=== PATIENT | female | born 1980 | race Caucasian/White ===

== ENCOUNTER 2017-03-13 16:17 | Emergency (ER) | payer BC ==
--- NOTE | 2017-03-13 18:00 | ED Physician Documentation ---
Fall - HISTORIAN Historian: patient - HPI Stated Complaint: Right Ankle Injury Chief Complaint: Fall Additional Information: stepped rt foot pothole w sig pain area distal fibula Onset: today (1500hrs) Where: park Context: lost balance r: moderate Associated Symptoms:: no loss of consciousness Location of Pain/Injury: denies: head, neck, face Injury to Right Extremity: ankle Injury to Left Extremity: none - ROS CONST: no problems MS/SKIN/LYMPH: ankle swelling. denies: neck pain, back pain, leg swelling EYES/ENT: denies: problems with vision CVS/RESP: none GI/: denies: nausea, vomiting - PAST HX Past History: none Allergies/Adverse Reactions: Allergies Allergy/AdvReac Type Severity Reaction Status Date / Time No Known Drug Allergies Allergy Unverified 03/06/15 14:37 Home Medications: Ambulatory Orders Medication Instructions Recorded NK [NK] 03/06/15 - SOCIAL HX Smoking History: non-smoker Alcohol Use: none Drug Use: none - FAMILY HX Family History: no significant history - VITAL SIGNS Vital Signs: Vital Signs Temp Pulse Resp BP Pulse Ox 97 F L 74 18 120/75 98 03/13/17 16:20 03/13/17 16:20 03/13/17 16:20 03/13/17 16:20 03/13/17 16:20 - REVIEWED ASSESSMENTS Nursing Assessment Reviewed: Yes Vitals Reviewed: Yes ED Results Lab/Radiology - Radiology Radiology Impressions: fx distal tip rt fibula - Orders Orders: ED Orders Category Date Time Status Walking Boot 1T Care 03/13/17 17:55 Active ANKLE 3 VIEWS OR MORE [RAD] Stat Exams 03/13/17 16:43 Taken Fall Physical Exam - Physical Exam General Appearance: mild distress Head: non-tender Neck: non-tender Eye: GABRIELE, EOMI ENT: nml external inspection Resp/CVS: chest non-tender, breath sounds nml, heart sounds nml Abdomen: soft, non-tender Neuro: oriented x3, CN's nml as tested, sensation nml, motor nml, mood/affect nml, ataxic gait Skin: color nml, no rash. No: cyanosis, diaphoresis, pallor Back: normal inspection Extremities: hips non-tender, no pedal edema Joint: No: Nml gait/weight bearing - Werner Coma Score Eyes Open: Spontaneous Speech: Oriented Motor: Obeys Commands Discharge Clincal Impression: avulsion fx distal tip rt fibula Referrals: Ricky Pop MD [Primary Care Provider] - 2 Days Home Medications: Ambulatory Orders NK [NK] 03/06/15 Comments: walking boot-=--limit amt walking standing Condition: Good Disposition: 01 HOME, SELF-CARE Decision to Admit: NO Decision Time: 18:03
--- NOTE | 2017-03-13 18:11 | Diagnostic Imaging Report ---
LUIS ANTONIO RACHEL [facility] [address] [facility] [address] [address] Report Submission Date: Mar 13, 2017 5:17:25 PM CDT Patient Study Name: JAGJIT GARRIDO Date: Mar 13, 2017 4:47:21 PM CDT Modality Type: CR Gender: F Description: LOWER EXTREMITY : 80 Institution: [facility] Physician: LUIS ANTONIO RACHEL Examination: Plain film ankle History: Injury Findings: 3 views of the ankle demonstrates avulsion of the tip of the fibula. Talar dome and distal tibia are within normal limits. Soft tissue swelling and joint effusion. Impression: Fibular tip avulsion fracture. Soft tissue swelling. Electronically signed on Mar 13, 2017 5:17:25 PM CDT by: David GUILLERMO
[2017-03-13 18:22] VITALS: BP 118/68
== END 2017-03-13 18:04 | disposition home or self-care (01) ==
LOC: ED 16:17
DX: S82.491A Other fracture of shaft of right fibula, initial encounter for closed fracture (principal); X58.XXXA Exposure to other specified factors, initial encounter; Y93.9 Activity, unspecified; Y99.9 Unspecified external cause status
CPT/HCPCS: 73610; L4360; 99283

== ENCOUNTER 2017-03-31 14:57 | Outpatient (CLI) | payer BC ==
--- NOTE | 2017-03-31 15:46 | Diagnostic Imaging Report ---
BRIAN DOMINGUEZ [facility] [address] [facility] [address] [address] Report Submission Date: Mar 31, 2017 3:36:58 PM CDT Patient Study Name: JAGJIT GARRIDO Date: Mar 31, 2017 3:03:33 PM CDT Modality Type: CR Gender: F Description: LOWER EXTREMITY : 80 Institution: [facility] Physician: BRIAN DOMINGUEZ Examination: Plain film ankle History: Ankle injury Comparison exam: and February 2017 Findings: 3 views of the ankle again demonstrates a small avulsion off the fibular tip - no change when compared with the previous examination. Remaining osseous cortical margins are without irregularity. Talar dome is intact. No soft tissue swelling or joint effusion. Impression: No change in the appearance of the fibular avulsion. No new osseous abnormality. Electronically signed on Mar 31, 2017 3:36:58 PM CDT by: David GUILLERMO
== END 2017-03-31 15:00 ==
LOC: RAD 14:57
PROVIDERS: ATTEND Physician Assistant
DX: S82.839A Other fracture of upper and lower end of unspecified fibula, initial encounter for closed fracture (principal); X58.XXXA Exposure to other specified factors, initial encounter; Y93.9 Activity, unspecified; Y99.9 Unspecified external cause status
CPT/HCPCS: 73610

== ENCOUNTER 2018-08-15 19:46 | Emergency (ER) | payer BC ==
--- NOTE | 2018-08-15 19:57 | ED Physician Documentation ---
Sore Throat/Dental Pain - HISTORIAN Historian: patient - HPI Stated Complaint: dental pain Chief Complaint: Dental Pain Onset: days ago (3) Context: Fractured Tooth Associated Symptoms: moderate. denies: fever, chills Worsened By: heat, cold Further Comments: yes (She states after last she had a depletion of calcium and her teeth break off. She states over the last three days she has had increased pain and feels the area is warm> no fever. She is taking OTC meds with mild relief) - ROS CONST: no problems - PAST HX Past History: none Immunizations: UTD Allergies/Adverse Reactions: Allergies Allergy/AdvReac Type Severity Reaction Status Date / Time No Known Drug Allergies Allergy Unverified 03/06/15 14:37 Home Medications: Ambulatory Orders Medication Instructions Recorded NK 03/06/15 - SOCIAL HX Smoking History: non-smoker Alcohol Use: none Drug Use: none - FAMILY HX Family History: No - VITAL SIGNS Vital Signs: Vital Signs Temp Pulse Resp BP Pulse Ox 118/68 03/13/17 18:04 - REVIEWED ASSESSMENTS Nursing Assessment Reviewed: Yes Vitals Reviewed: Yes Dental Pain Physical Exam - EXAM General Appearance: no acute distress, alert Head/Neck: head nml inspection, no lymphadenopathy. No: pain over sinuses Eyes: eyes nml inspection, PERRL Mouth/Throat: lips nml, gum swelling around teeth (right upper back tooth broken and gum is mildly red. No drainage. No facial redness or swelling ) Respiratory: no resp. distress, breath sounds nml, respiratory distress CVS: reg. rate & rhythm, heart sounds nml Abdomen: soft Extremities: non-tender Skin: warm/dry, normal color Neuro/Psych: none Discharge Clincal Impression: Dental disorder Referrals: Ricky Pop MD [Primary Care Provider] - 2 Days Comments: 1. Amoxicillin 875 mg take 1 by mouth every 12 hours x 10 days 2. Tramadol 50 mg take 1 by mouth every 8 hours as needed for pain 3. Warm salt water gargles 4. Keep appt with dental 5. Return to ER for any concerns Condition: Stable Disposition: 01 HOME, SELF-CARE Decision to Admit: NO Date of Decison to Admit: 08/15/18 Decision Time: 20:13
[2018-08-15] MEDS ORDERED: AMOXICILLIN 500 MG CAPSULE PO ONE (20:01)
[2018-08-15] MEDS ORDERED: KETOROLAC TROMETHAMINE 60 MG/2 ML VIAL IM ONE (20:03)
[2018-08-15 20:35] VITALS: BP 149/87
== END 2018-08-15 20:28 | disposition home or self-care (01) ==
LOC: ED 19:46
DX: K08.89 Other specified disorders of teeth and supporting structures (principal)
CPT/HCPCS: 99282; 99283

== ENCOUNTER 2019-01-16 15:45 | Emergency (ER) | payer BC ==
--- NOTE | 2019-03-10 10:59 | Diagnostic Imaging Report ---
MARK MAC [facility] [address] [facility] [address] Report Submission Date: Jan 16, 2019 4:30:11 PM CDT Patient Study Name: JAGJIT ANDREWS Date: Jan 16, 2019 4:03:52 PM CDT Modality Type: DX Gender: F Description: ANKLE 3 VIEWS OR MORE : 80 Institution: [facility] Physician: MARK MAC Exam: Right ankle. History: Pain. AP, lateral and mortise view of the right ankle are submitted. No signs of acute fracture or dislocation seen. Ankle mortise is adequately maintained. Soft tissue swelling about the ankle is noted. Impression: Soft tissue swelling. Electronically signed on Jan 16, 2019 4:30:11 PM CDT by: Jaxon GUILLERMO
== END 2019-01-16 16:58 ==
LOC: ED 15:45
DX: S93.401A Sprain of unspecified ligament of right ankle, initial encounter (principal); W19.XXXA Unspecified fall, initial encounter; Y93.01 Activity, walking, marching and hiking; Y99.8 Other external cause status
CPT/HCPCS: 73610; 99282; 99283